=== PATIENT | female | born 1980 | race Caucasian/White ===

== ENCOUNTER 2017-07-22 04:25 | Emergency (ER) | payer BC ==
[~2017-07-22] VITALS: Ht 172.7 cm; Wt 92.7 kg
[2017-07-22] MEDS ORDERED: ketorolac trometh. 30mg/ml inj. IV ONE (05:05)
[2017-07-22] MEDS ORDERED: ondansetron/PF 4mg/2ml inj IM ONE (05:05)
[2017-07-22] MEDS ORDERED: morphine 2 MG/ML inj. syringe IV ONE ×2 (05:05→07:40)
[2017-07-22] MEDS ORDERED: normal saline 1000ML IV soln IVB ONE ×2 (05:05→07:40)
[2017-07-22 05:21] LABS: CLARITY,URINE CLEAR (Clear); COLOR,URINE YELLOW (Yellow); GLUCOSE, URINE NEGATIVE (Neg); KETONES,URINE NEGATIVE (Neg); LEUKOCYTE ESTERASE ,URINE NEGATIVE (Neg); NITRITES, URINE NEGATIVE (Neg); OCCULT BLOOD,URINE NEGATIVE (Neg); PROTEIN,URINE NEGATIVE (Neg); UROBILINOGEN,URINE 0.2 E.U/dL (0.2-1.0)
[2017-07-22 05:23] LABS: URINE HCG NEGATIVE (NEG)
[2017-07-22 05:32] LABS: BASOPHILS % (AUTO) 0.4 % (0-1); EOSINOPHILS % (AUTO) 0.5 % (0-6); HEMOGLOBIN 14.1 g/dl (12.0-16.0); LYMPHOCYTES # (AUTO) 1.7 X10'3 (1.1-4.8); LYMPHOCYTES % (AUTO) 18.3 % (21-51); MEAN CORPUSCULAR HEMOGLOBIN 30.4 PG (27.0-31.0); MEAN CORPUSCULAR HGB CONC 34.3 % (33.0-36.5); MEAN CORPUSCULAR VOLUME 88.4 FL (78-98); MONOCYTES # (AUTO) 0.6 X10'3 (0-0.9); MONOCYTES % (AUTO) 6.1 % (2-12); NEUTROPHILS % (AUTO) 74.7 % (42-75); PLATELET COUNT 267 X10'3 (140-440); RED BLOOD COUNT 4.63 X10'6 (4.20-5.60); RED CELL DISTRIBUTION WIDTH 13.1 % (11.5-14.5); WHITE BLOOD COUNT 9.3 X10'3 (4.5-11.0)
[2017-07-22 05:38] LABS: UA COLLECTION TYPE CLN CATCH MIDSTREAM
[2017-07-22] MEDS ORDERED: tamsulosin 0.4mg capsule PO SCH ×2 (06:13→21:00)
[2017-07-22 06:32] LABS: ALANINE AMINOTRANSFERASE 46 U/L (12-78); ALBUMIN 3.9 G/DL (3.4-5.0); ALBUMIN/GLOBULIN RATIO 1.1 (1.1-1.5); ALKALINE PHOSPHATASE 72 IU/L (46-116); ANION GAP 13 (8-16); ASPARTATE AMINO TRANSFERASE 13 U/L (10-37); BILIRUBIN,TOTAL 0.4 MG/DL (0.1-1.0); BLOOD UREA NITROGEN 17 MG/DL (7-18); BUN/CREATININE RATIO 21.5 (6.6-38.0); CHLORIDE 101 MMOL/L (99-107); CREATININE 0.79 MG/DL (0.40-0.90); GLUCOSE 114 MG/DL (70-104); LIPASE 69 U/L (73-393); POTASSIUM 3.4 MMOL/L (3.5-5.1); SODIUM 139 MMOL/L (135-145); TOTAL CARBON DIOXIDE 24.7 MMOL/L (24-32); TOTAL PROTEIN 7.6 G/DL (6.4-8.2); eGFR 83 ML/MIN
[2017-07-22] MEDS ORDERED: ondansetron/PF 4mg/2ml inj IV ONE (07:40)
[2017-07-22] MEDS ORDERED: diphenhydrAMINE 25mg capsule PO ONE (07:45)
[2017-07-22] MEDS ORDERED: ONDA4TAB9 SL (07:58)
[2017-07-22 08:20] VITALS: BP 97/60
== END 2017-07-22 08:26 | disposition home or self-care (01) ==
LOC: ER 04:27
DX: R10.32 Left lower quadrant pain (principal); Z91.013 Allergy to seafood
CPT/HCPCS: 36415; 74176; 80053; 81003; 81025; 83690; 83735; 85025; 96361; 96372; 96374; 96375; 96376; 99285; J1885; J2270; J2405; J7030

== ENCOUNTER 2018-09-23 18:59 | Emergency (ER) | payer BC, OTHER ==
[~2018-09-23] VITALS: Ht 174 cm; Wt 92.0 kg
[2018-09-23 19:04] VITALS: BP 145/91
[2018-09-23] MEDS ORDERED: TETanus/Pertussis (Acell)/Diphther VAC/PF (Tdap-Adult) 0.5ml syringe IM ONE (20:45)
[2018-09-23] MEDS ORDERED: LIDOcaine 1% w/epiNEPHrine 1:200,000 30ml vial IM ONE (20:45)
[2018-09-23] MEDS ORDERED: acetaminophen 325mg tablet PO ONE (21:05)
== END 2018-09-23 21:28 | disposition home or self-care (01) ==
LOC: ER 19:00
DX: S01.01XA Laceration without foreign body of scalp, initial encounter (principal); R42 Dizziness and giddiness; K08.89 Other specified disorders of teeth and supporting structures; Z91.013 Allergy to seafood; Z91.018 Allergy to other foods; Z98.890 Other specified postprocedural states; W22.8XXA Striking against or struck by other objects, initial encounter; Y93.89 Activity, other specified; Y92.89 Other specified places as the place of occurrence of the external cause; Y99.8 Other external cause status
CPT/HCPCS: 12001; 90471; 90715; 99283; J3490

== ENCOUNTER 2022-06-22 13:23 | Emergency (ER) | payer BC ==
[~2022-06-22] VITALS: Ht 175.3 cm; Wt 90.9 kg
[2022-06-22] MEDS ORDERED: morphine 4 MG/ML inj SYRINge IV ONE (14:25)
[2022-06-22] MEDS ORDERED: ondansetron/PF 4mg/2ml inj IV ONE (14:25)
[2022-06-22] MEDS ORDERED: normal saline 1000ML IV soln IVB ONE (14:35)
[2022-06-22 14:44] LABS: BASOPHILS % (AUTO) 0.3 % (0-1); EOSINOPHILS % (AUTO) 0.1 % (0-6); HEMOGLOBIN 13.8 g/dl (12.0-16.0); LYMPHOCYTES # (AUTO) 1.2 X10'3 (1.1-4.8); MEAN CORPUSCULAR HEMOGLOBIN 28.3 PG (27.0-31.0); MEAN CORPUSCULAR HGB CONC 33.6 g/dL (33.0-36.5); MEAN CORPUSCULAR VOLUME 84.4 FL (78-98); MEAN PLATELET VOLUME 8.4 FL (7.4-10.4); MONOCYTES # (AUTO) 0.4 X10'3 (0-0.9); MONOCYTES % (AUTO) 3.2 % (2-12); NEUTROPHILS % (AUTO) 86.4 % (42-75); PLATELET COUNT 365 X10'3 (140-440); RED BLOOD COUNT 4.86 X10'6 (4.20-5.60); RED CELL DISTRIBUTION WIDTH 14.5 % (11.5-14.5); WHITE BLOOD COUNT 11.6 X10'3 (4.5-11.0)
[2022-06-22 14:54] LABS: ALANINE AMINOTRANSFERASE 40 U/L (12-78); ALBUMIN 4.1 G/DL (3.4-5.0); ALBUMIN/GLOBULIN RATIO 1.2 (1.1-1.5); ALKALINE PHOSPHATASE 96 IU/L (46-116); ANION GAP 17 (8-16); ASPARTATE AMINO TRANSFERASE 25 U/L (10-37); BILIRUBIN,TOTAL 0.5 MG/DL (0.1-1.0); BLOOD UREA NITROGEN 12 MG/DL (7-18); CHLORIDE 105 MMOL/L (99-107); CREATININE 0.92 MG/DL (0.40-0.90); GLUCOSE 148 MG/DL (70-104); LIPASE < 50 U/L (73-393); SODIUM 141 MMOL/L (135-145); TOTAL CARBON DIOXIDE 18.7 MMOL/L (24-32); TOTAL PROTEIN 7.6 G/DL (6.4-8.2); eGFR 68 ML/MIN
[2022-06-22 14:58] LABS: POTASSIUM 2.7 MMOL/L (3.5-5.1)
[2022-06-22] MEDS ORDERED: POTASSIUM BICARB 20meq eff tab 20 MEQ TABLET.EFF PO ONE (15:10)
[2022-06-22] MEDS ORDERED: proCHLORperazine 10 MG/2 ml inj IV ONE (16:15)
[2022-06-22] MEDS ORDERED: fentaNYL/PF 50MCG/1 ML 2ML syringe IV ONE (16:15)
[2022-06-22] MEDS ORDERED: ketorolac trometh. 30mg/ml inj. IV ONE (16:15)
[2022-06-22] MEDS ORDERED: HYDR-3972 PO (16:58)
[2022-06-22] MEDS ORDERED: ONDA4TAB12 PO (16:58)
[2022-06-22 17:00] VITALS: BP 142/76
--- NOTE | 2022-06-22 17:04 | NUR ---
Pt states her current pain level 2/10. She was able to tolerate drinking small sips of H2O w/out vomitting. States she still feels the nausea, but not as bad as before, and drank more sips than she has been able to drink in 3 days.
== END 2022-06-22 17:54 | disposition home or self-care (01) ==
LOC: ER 13:24
DX: R10.30 Lower abdominal pain, unspecified (principal); R11.2 Nausea with vomiting, unspecified; F17.200 Nicotine dependence, unspecified, uncomplicated; Z87.440 Personal history of urinary (tract) infections; Z98.890 Other specified postprocedural states; Z79.899 Other long term (current) drug therapy
CPT/HCPCS: 36415; 74176; 80053; 83690; 85025; 96361; 96374; 96375; 99285; J0780; J1885; J2270; J2405; J3010; J7030